=== PATIENT | male | born 1955 | race Caucasian/White ===

== ENCOUNTER → 2019-01-14 | Outpatient (CLI) | payer BC | LOC: COL.VAS 01-08 09:00 | DX: I10 Essential (primary) hypertension (principal) ==

== ENCOUNTER → 2019-02-22 | Outpatient (CLI) | payer BC | LOC: COL.RAD 11:09 | DX: D35.02 Benign neoplasm of left adrenal gland (principal) | CPT/HCPCS: Q9967 ==

== ENCOUNTER → 2020-04-02 | Outpatient (CLI) | payer BC | LOC: COL.RAD | DX: Z13.89 Encounter for screening for other disorder (principal); R22.2 Localized swelling, mass and lump, trunk | CPT/HCPCS: Q9967 ==

== ENCOUNTER → 2020-04-10 | Outpatient (CLI) | payer BC | LOC: COL.RAD 12:14 | DX: R91.1 Solitary pulmonary nodule (principal) | CPT/HCPCS: Q9967 ==

== ENCOUNTER → 2020-07-28 | Outpatient (CLI) | payer BC | LOC: COL.RAD 12:32 | DX: R91.1 Solitary pulmonary nodule (principal) | CPT/HCPCS: Q9967 ==

== ENCOUNTER → 2020-12-30 | Outpatient (CLI) | payer BC ==
[~2020-12-30] VITALS: Ht 188 cm; Wt 104.2 kg
[~2020-12-30] MED LIST: ALDACTONE 25MG25 M1 PO; ASPIRIN 81M81 MG/TA2 PO; ELIQUIS 5MG PO; LASIX 20MG TABL20 MG PO; MIDAMOR 5MG TAB5 MG PO; NORVASC2.5 MG PO; ONE-A-DAY ESSE1 EACH PO; TOPROL XL 50MG50 MG PO; UROXATRAL10 M1 PO
[2020-12-30 13:45] VITALS: BP 153/101; PULSE 55
== END ==
LOC: COL.RAD 12:41
DX: R19.01 Right upper quadrant abdominal swelling, mass and lump (principal)

== ENCOUNTER 2021-02-26 15:41 | Inpatient (IN) | payer BC ==
[~2021-02-26] VITALS: Ht 182.9 cm; Wt 104.8 kg
[~2021-02-26 15:41] MED LIST changes: -ELIQUIS 5MG PO; -LASIX 20MG TABL20 MG PO; -MIDAMOR 5MG TAB5 MG PO
[2021-02-26] MEDS ORDERED: ALDACTONE 25MG25 M1 PO (15:59)
[2021-02-26 16:04] LABS: BASO # 0.1 (0.0-0.2); BASO % 0.6 % (0.0-2.0); EOS # 0.2 (0.0-0.7); EOS % 2.2 % (0-4.0); GRAN # 6.3 (1.4-6.5); GRAN % 69.5 % (42.2-75.2); HEMATOCRIT 43.7 % (42.0-52.0); HEMOGLOBIN 14.7 g/dl (13.5-18.0); LYMPH # 1.7 (1.2-3.4); LYMPH % 18.3 % (20.0-51.0); MEAN CELL VOLUME 86 fl (80.0-100.0); MEAN CORPUSCULAR HEMOGLOBIN 29 pg (27.0-31.0); MEAN CORPUSCULAR HGB CONC 34 g/dl (33.0-37.0); MONO # 0.8 (0.1-0.6); PLATELET COUNT 202 K/mm3 (130-400); RED BLOOD COUNT 5.11 M/mm3 (4.20-5.60); REDCELL DISTRIBUTION WIDTH-CV 13.3 % (11.5-14.5)
[2021-02-26 16:11] LABS: INR 1.4 (0.8-3.0); PROTHROMBIN TIME 15.6 SECONDS (9.7-12.8)
[2021-02-26 16:20] LABS: ALANINE AMINOTRANSFERASE 36 U/L (4-49); ALKALINE PHOSPHATASE 49 U/L (50-136); ANION GAP 8 mmol/L (7-16); AST,SGOT 30 U/L (15-37); BILIRUBIN,TOTAL 1.6 mg/dL (0.0-1.0); BLOOD UREA NITROGEN 24 mg/dL (9-20); CALCIUM 9.1 mg/dL (8.4-10.2); CARBON DIOXIDE 24 mmol/L (22-30); CHLORIDE 107 mmol/L (98-107); CREATININE, serum 1.24 (0.66-1.25); GLUCOSE 104 mg/dL (74-106); MAGNESIUM 2.1 mg/dL (1.6-2.3); POTASSIUM 3.9 mmol/L (3.4-5.0); SODIUM 139 mmol/L (137-145)
[2021-02-26 16:54] LABS: TROPONIN-I < 0.012 ng/mL (0.000-0.035)
[2021-02-26 19:08] LABS: PARTIAL THROMBOPLASTIN TIME 25.8 SECONDS (26.0-37.0)
[2021-02-26] MEDS ORDERED: MIDAMOR 5MG TAB5 MG PO (19:27)
[2021-02-26 22:58] LABS: C-REACTIVE PROTEIN 4.2 mg/dL (0.0-0.9); PHOSPHOROUS 4.8 mg/dL (2.5-4.5)
[2021-02-26 23:40] VITALS: BP 123/82; PULSE 100; TEMP 97.5
--- NOTE | 2021-02-26 23:40 | NUR ---
PT ARRIVES VIA CART FROM ED. ABLE TO TRANSFER SELF FROM CART TO BED WITHOUT PROBLEM. HAS IV CARDIZEM AT 15CC/HR INFUSING TO LEFT HAND WITH HEPARIN GTT Y-SITED AT 19CC/HR. HAS SL TO RT AC, FLUSHES WELL. PT IS ALERT AND ORIENTED X4. ORIENTED TO ROOM AND BED.
[2021-02-27] VITALS (12 sets, daily range): BP systolic 118–152; BP diastolic 79–95; PULSE 44–123; TEMP 97.5–99
[2021-02-27] MEDS ORDERED: ALDACTONE 25MG25 M1 PO (00:08)
--- NOTE | 2021-02-27 03:00 | NUR ---
PT REMAINS ON CARDIZEM GTT AT 15CC/HR AND HEPARIN GTT AT 19CC/HR TO LEFT HAND. VSS. REMAINS IN AFIB WITH VARIOUS RATES.
[2021-02-27 03:13] LABS: MUCOUS Present /lpf; PH 6 (5-8); SQUAMOUS EPITHELIAL None Seen /hpf; URINE APPEARANCE Clear; URINE BACTERIA None Seen /hpf; URINE BILIRUBIN Negative (NEGATIVE); URINE BLOOD Negative (NEGATIVE); URINE COLOR Yellow; URINE GLUCOSE Negative (NEGATIVE); URINE KETONE Negative (NEGATIVE); URINE LEUKOCYTE ESTERASE Negative (NEGATIVE); URINE NITRATE Negative (NEGATIVE); URINE PROTEIN(semi-quant) Negative (NEGATIVE); URINE RBC 0-2 /hpf; URINE UROBILINOGEN Negative (NEGATIVE)
[2021-02-27 03:41] LABS: COLLECTION METHOD CLEAN CATCH
--- NOTE | 2021-02-27 06:00 | NUR ---
PT DENIES PAIN. IS ALERT AND ORIENTED X4.
--- NOTE | 2021-02-27 06:30 | NUR ---
Report given by DENTON Hernández. Patient is resting comfortably in bed. Call light and bedside table are within reach. Will continue to monitor throughout shift.
--- NOTE | 2021-02-27 07:32 | NUR ---
Pharmacy called & verified combtability of heparin & cardizem. Verified rates with nina primary nurse. Lab called for hep xa level that is delayed. Informed them this is stat.
--- NOTE | 2021-02-27 07:51 | NUR ---
Called , update given on patient. No new orders just want to make sure echo gets completed today. Called telephone appointment clerk & asked to keep patient on high alert & gave my nomber as chrage nurse to call if any status change as well as primry care nurse.
--- NOTE | 2021-02-27 07:55 | NUR ---
industrial gas servicer supervisor notifed about hep xa still not being completed. She will call lab and or draw lab.
[2021-02-27 08:15] LABS: BASO # 0.1 (0.0-0.2); BASO % 0.5 % (0.0-2.0); EOS # 0.1 (0.0-0.7); EOS % 0.6 % (0-4.0); GRAN # 10.3 (1.4-6.5); GRAN % 81.3 % (42.2-75.2); HEMATOCRIT 46.4 % (42.0-52.0); HEMOGLOBIN 16.1 g/dl (13.5-18.0); LYMPH # 1.3 (1.2-3.4); LYMPH % 10.4 % (20.0-51.0); MEAN CELL VOLUME 85 fl (80.0-100.0); MEAN CORPUSCULAR HEMOGLOBIN 30 pg (27.0-31.0); MEAN CORPUSCULAR HGB CONC 35 g/dl (33.0-37.0); MEAN PLATELET VOLUME 10.3 fl (7.4-10.4); MONO # 0.9 (0.1-0.6); MONO % 6.8 % (1.7-9.3); PLATELET COUNT 236 K/mm3 (130-400); RED BLOOD COUNT 5.45 M/mm3 (4.20-5.60); REDCELL DISTRIBUTION WIDTH-CV 13.5 % (11.5-14.5)
[2021-02-27 08:25] LABS: CALCIUM 8.8 mg/dL (8.4-10.2); CHOLESTEROL RISK RATIO 4.1; POTASSIUM 3.3 mmol/L (3.4-5.0)
--- NOTE | 2021-02-27 08:36 | NUR ---
HEP XA LEVEL OBTAINED. NO CHANGE ON RATE NEEDED.
--- NOTE | 2021-02-27 13:20 | NUR ---
Chipper offered prayer and support with patient while family was in room.
--- NOTE | 2021-02-27 13:55 | NUR ---
Sw met with the pt who stated his preference to return home once medically stable. The pt lives at home with his life partner, Dianelys Bailey (ph# [phone]). The pt does not have a DPAO-HC and is not interested in one. His Daughter is his NK. The pt is independependent on all ADS and does not use any DME. He jokes that you catch him running. The pt PCP is Esteban Alford and gets his medications from [facility] and has no trouble obtaining them. No other needs stated at this time. Sw to await further recommendations. Sw to follow as needed. D/C: Home
--- NOTE | 2021-02-27 14:33 | NUR ---
Contacted Kayla BRAGG about changing Potassium replacment to PO; patient complaining of burning to IV site. Changed medication per orders.
--- NOTE | 2021-02-27 15:52 | NUR ---
Per Dr. Sims, decrease rate from 15 ml to 10 ml
[2021-02-27 15:56] LABS: ARTERIAL BLD GAS O2 SATURATION 91.6 % (92-100); ARTERIAL BLOOD GAS BASE EXCESS 3.3 (-2-2); ARTERIAL BLOOD GAS HCO3 26.9 meq/L (22-26); ARTERIAL BLOOD GAS PCO2 37.5 mmHg (35-45); ARTERIAL BLOOD GAS PO2 57.9 mmHg (80-100); ARTERIAL BLOOD GAS pH 7.47 (7.35-7.45)
--- NOTE | 2021-02-27 16:00 | NUR ---
called, orders to decrease cardizem drip to 10ml/hr. Rate changed per orders. Patient remains on tele & vitals remains stable
--- NOTE | 2021-02-27 21:05 | NUR ---
PT IN BED, HAS CARDIZEM GTT AT 10CC/HR TO LEFT HAND WITH HEPARIN GTT AT 19CC/HR OR 1900 UNITS PER HOUR INFUSING TO LEFT HAND WELL. HAS SL TO RT AC, FLUSHES WELL. VOIDING WITHOUT PROBLEM. DENIES CHEST PAIN OR SHORTNESS OF BREATH. KITCHENHAND CALLS TO NOTIFY NURSE PT IN SR.
[2021-02-28 03:04] VITALS: BP 125/84; PULSE 72; TEMP 98.1
--- NOTE | 2021-02-28 06:40 | NUR ---
Report received from DENTON Hernández. Patient is resting in bed. Patient denies pain at this time. Call light and bedside table are within reach. Will continue to monitor patient throughout shift.
[2021-02-28 08:13] LABS: BASO # 0.1 (0.0-0.2); BASO % 0.7 % (0.0-2.0); EOS # 0.3 (0.0-0.7); EOS % 3.5 % (0-4.0); GRAN # 5.3 (1.4-6.5); GRAN % 70.1 % (42.2-75.2); HEMATOCRIT 45.9 % (42.0-52.0); HEMOGLOBIN 15.8 g/dl (13.5-18.0); LYMPH # 1.3 (1.2-3.4); LYMPH % 16.8 % (20.0-51.0); MEAN CELL VOLUME 86 fl (80.0-100.0); MEAN CORPUSCULAR HEMOGLOBIN 30 pg (27.0-31.0); MEAN CORPUSCULAR HGB CONC 34 g/dl (33.0-37.0); MEAN PLATELET VOLUME 10.5 fl (7.4-10.4); MONO # 0.6 (0.1-0.6); MONO % 8.4 % (1.7-9.3); PLATELET COUNT 221 K/mm3 (130-400); RED BLOOD COUNT 5.35 M/mm3 (4.20-5.60); REDCELL DISTRIBUTION WIDTH-CV 13.4 % (11.5-14.5)
[2021-02-28 08:22] LABS: CALCIUM 8.7 mg/dL (8.4-10.2); CREATININE, serum 0.93 (0.66-1.25); POTASSIUM 3.6 mmol/L (3.4-5.0)
[2021-02-28 08:55] VITALS: BP 139/85; PULSE 74; TEMP 98
--- NOTE | 2021-02-28 09:05 | NUR ---
Per YEMI Garza. Change rate of Cardizem from 10 to 5 ml/hour. This nurse complied.
[2021-02-28 10:06] VITALS: PULSE 74
[2021-02-28 12:50] VITALS: BP 134/91; PULSE 68; TEMP 98.1
[2021-02-28 15:09] VITALS: BP 139/83; PULSE 69; TEMP 98.7
--- NOTE | 2021-02-28 19:45 | NUR ---
PT REQUESTING SHOWER. DC'D SL FROM LEFT HAND D/T TENDERNESS. WRAPPED SL TO RIGHT AC AND REMOVED TELE FOR SHOWER. S.O AT BEDSIDE.
--- NOTE | 2021-02-28 20:30 | NUR ---
PT UP IN CHAIR AT BEDSIDE. RECONNECTED IV ARTURO. TAKES HS MEDS WITHOUT PROBLEM. DENIES PAIN OR SHORTNESS OF BREATH. INDEPENDENT IN ROOM.
[2021-02-28 20:38] VITALS: BP 138/94; PULSE 67; TEMP 98.2
--- NOTE | 2021-02-28 22:32 | NUR ---
DR MCKENZIE CALLED TO CHECK ON PATIENT. OKAYED TO DC CARDIZEM GTT.
[2021-03-01 00:40] VITALS: BP 136/93; PULSE 67; TEMP 98.5
--- NOTE | 2021-03-01 03:00 | NUR ---
Independent in room.
[2021-03-01 04:36] VITALS: BP 154/94; PULSE 68; TEMP 98
[2021-03-01 07:22] VITALS: BP 158/101; PULSE 67; TEMP 98.2
[2021-03-01 07:34] LABS: BASO # 0.1 (0.0-0.2); BASO % 0.7 % (0.0-2.0); EOS # 0.3 (0.0-0.7); EOS % 4.8 % (0-4.0); GRAN # 4.6 (1.4-6.5); GRAN % 66.3 % (42.2-75.2); HEMATOCRIT 45.4 % (42.0-52.0); HEMOGLOBIN 15.2 g/dl (13.5-18.0); LYMPH # 1.2 (1.2-3.4); LYMPH % 17.5 % (20.0-51.0); MEAN CELL VOLUME 87 fl (80.0-100.0); MEAN CORPUSCULAR HEMOGLOBIN 29 pg (27.0-31.0); MEAN CORPUSCULAR HGB CONC 34 g/dl (33.0-37.0); MEAN PLATELET VOLUME 11.5 fl (7.4-10.4); MONO # 0.7 (0.1-0.6); MONO % 10.3 % (1.7-9.3); PLATELET COUNT 181 K/mm3 (130-400); REDCELL DISTRIBUTION WIDTH-CV 13.4 % (11.5-14.5)
[2021-03-01 07:47] LABS: CREATININE, serum 0.94 (0.66-1.25); MAGNESIUM 2.1 mg/dL (1.6-2.3); POTASSIUM 3.6 mmol/L (3.4-5.0)
--- NOTE | 2021-03-01 08:00 | NUR ---
Patient in bed resting. Alert and oriented x 3. Assessment complete. Patient denies pain at this time. Up independently in room. Patient denies needs at this time.
[2021-03-01] MEDS ORDERED: LASIX 20MG TABL20 MG PO (09:16)
[2021-03-01] MEDS ORDERED: ELIQUIS 5MG PO (09:16)
[2021-03-01] MEDS ORDERED: TOPROL XL 50MG50 MG PO (09:21)
--- NOTE | 2021-03-01 10:21 | NUR ---
Initial visit; Patient thanked Filter Tank Tender Helper Head for looking in on him and offering God's blessings.
[2021-03-01 11:00] VITALS: BP 159/90
--- NOTE | 2021-03-01 11:10 | NUR ---
Discharge education provided to patient. Educated on when to call provider and scheduling follow up appointments. Educated on medication changes and all new medications. All questions answered. Spouse at bedside. Denies further needs at this time. INT to RAC discontinued, catheter tip intact. Patient ambulated out with surgical staff and spouse.
== END 2021-03-01 11:10 | disposition home or self-care (01) | DRG 308 ==
LOC: COL.ER 15:41 → SURG 19:56
PROVIDERS: Internal Medicine Interventional Cardiology; Nurse Practitioner; Nurse Practitioner Family; Physician Assistant; ADMIT Student in an Organized Health Care Education/Training Program
DX: I48.91 Unspecified atrial fibrillation (principal); I50.31 Acute diastolic (congestive) heart failure; I11.0 Hypertensive heart disease with heart failure; I08.1 Rheumatic disorders of both mitral and tricuspid valves; N40.0 Benign prostatic hyperplasia without lower urinary tract symptoms; R91.1 Solitary pulmonary nodule; E87.6 Hypokalemia; E86.0 Dehydration; Z79.82 Long term (current) use of aspirin; Z96.642 Presence of left artificial hip joint; Z88.0 Allergy status to penicillin
CPT/HCPCS: 99223-AI; 99232-AI; 99233-AI; 99239; J1644; J1940; J3480; Q9967

== ENCOUNTER → 2021-08-11 | Outpatient (CLI) | payer BC ==
[~2021-08-11] MED LIST changes: +ELIQUIS 5MG PO; +LASIX 20MG TABL20 MG PO; +MIDAMOR 5MG TAB5 MG PO
[2021-08-11 10:23] LABS: ALBUMIN 3.9 gm/dL (3.4-4.8); BILIRUBIN,TOTAL 1.1 mg/dL (0.2-1.2); CALCIUM 8.6 mg/dL (8.4-10.2); CHOLESTEROL RISK RATIO 4.2; CREATININE, serum 0.98 mg/dL (0.72-1.25); TOTAL PROTEIN 7.1 gm/dL (6.2-8.1)
[2021-08-11 10:39] LABS: THYROID STIMULATING HORMONE 1.518 uIU/mL (0.350-4.940)
== END ==
LOC: COL.LAB 08:43
PROVIDERS: Internal Medicine Adult Congenital Heart Disease
DX: I48.0 Paroxysmal atrial fibrillation (principal); R91.1 Solitary pulmonary nodule

== ENCOUNTER → 2021-08-11 | Outpatient (CLI) | payer BC ==
[2021-08-13 17:04] LABS: ANGIOTENSIN CONVERTING ENZYME 36 U/L (16 - 85)
[2021-08-18 13:49] LABS: HISTOPLASMA ID Negative (Negative); HISTOPLASMA MYCELIAL Negative (Negative); HISTOPLASMA YEAST Negative (Negative)
== END ==
LOC: COL.LAB 08:41
PROVIDERS: Internal Medicine Pulmonary Disease
DX: R91.1 Solitary pulmonary nodule (principal)

== ENCOUNTER 2021-10-06 08:58 | Outpatient (CLI) | payer BC ==
[2021-10-06] VITALS (11 sets, daily range): BP systolic 167–187; BP diastolic 95–120; PULSE 52–66; TEMP 97.6
[~2021-10-06] VITALS: Ht 188 cm; Wt 104.6 kg
[~2021-10-06 08:58] MED LIST changes: +COREG 25MG25 MG/TAB PO; +COZAAR 50MG50 MG/TAB PO
--- NOTE | 2021-10-06 14:37 | NUR ---
DC instructions reviewed with pt and his significant other. Both express understanding. Pt continues to deny pain or shortness of breath concerns. He was able to ambulate to restroom with steady gait. INT DC'd with catheter intact. He is assisted out to significant other's car by wheelchair.
== END 2021-10-06 14:37 | disposition home or self-care (01) ==
LOC: COL.RAD 08:58
DX: R91.1 Solitary pulmonary nodule (principal)
CPT/HCPCS: 32106

== ENCOUNTER → 2023-11-08 | Outpatient (CLI) | payer MEDICARE | LOC: COL.RAD 08:22 | DX: R91.1 Solitary pulmonary nodule (principal) ==